=== PATIENT | male | born 1970 ===

== ENCOUNTER 2025-06-18 17:41 | Outpatient (REF) | payer OTHER, BC, SELFPAY ==
[2025-06-18 16:08] LABS: Abs Immature Grans 0.04 10^3/uL (0.0-0.06); HCT 48.2 % (40.0-50.0); HGB 16.6 g/dL (13.5-17.5); Immature Grans % 0.8 %; MCH 28.1 pg (27.0-33.0); MCHC 34.4 % (32.0-36.0); MCV 82 fL (80-95); MPV 10.6 fL (8.0-11.0); Platelet Count 248 10^3/uL (130-400); RBC 5.91 10^6/uL (4.36-5.78); RDW 13.2 % (11.8-14.1); RDW-SD 39.4 fL; WBC 5.17 10^3/uL (4.4-10.8)
[2025-06-18 16:40] LABS: ALT 22 U/L (16-63); AST 21 U/L (15-37); Albumin 4.0 g/dL (3.4-5.0); Alkaline Phosphatase 78 U/L (46-116); Anion Gap 9.8 mmol/L (3-11); BUN 18 mg/dL (7-18); Bilirubin, Total 0.9 mg/dL (0.2-1.0); CO2 25.2 mmol/L (21.0-32.0); Calcium 9.0 mg/dL (8.5-10.1); Calculated LDL 94 mg/dL (<100); Chloride 104 mmol/L (98-107); Cholesterol 151 mg/dL (<200); Estimated GFR 99.62 (mL/min/1.73m2); Glucose 86 mg/dL (74-106); HDL Cholesterol 40 mg/dL (>or=40); Potassium 4.3 mmol/L (3.5-5.1); Sodium 139 mmol/L (136-145); Total Protein 6.9 g/dL (6.4-8.2); Triglyceride 87 mg/dL (<150)
[2025-06-18 23:11] LABS: PSA, Diagnostic 10.8 ng/mL (<=3.5)
== END 2025-06-18 17:42 | disposition home or self-care (01) ==
LOC: NCHCN 17:41
PROVIDERS: PCP Nurse Practitioner Family; Visit Provider Nurse Practitioner Family
DX: Z00.00 Encounter for general adult medical examination without abnormal findings (principal); R97.20 Elevated prostate specific antigen [PSA]
CPT/HCPCS: 80053; 80061; 84153; 85025